=== PATIENT | female | born 1995 | race African-American/Black ===

== ENCOUNTER 2018-06-12 20:54 | Emergency (ER) | payer MEDICAID, OTHER ==
[2018-06-12] MEDS ORDERED: HYDROMORPHONE HCL INJ/PF 2 MG/ML AMPULE IV ONE ×2 (21:20→21:53)
--- NOTE | 2018-06-12 21:46 | ER Document Report ---
Addendum entered and electronically signed by MERRILL HERRERA PA-C 06/29/18 14:08: Procedures - Joint Reduction/Fracture Care Left Knee Consent obtained: Yes Conscious sedation: No Pre-procedure NV exam: Yes - Normal distal neurovascular exam Manipulation comment: Left patella reduction Post-procedure NV exam: Yes - Normal distal neurovascular exam Complications: No Original Note: ED General - General Chief Complaint: Knee Injury Stated Complaint: L KNEE INJURY Time Seen by Provider: 06/12/18 20:57 Notes: 22-year-old female presents to the emergency department for knee pain. She stat es she was a check he chooses and she was in the standing position then turned to walk somewhere and heard a pop in her knee gave out on her. She states she is in excruciating pain and there is an obvious deformity. She denies any trauma to the knee. She did fall and hit her head on 1 of the machines. No loss of consciousness. She denies any numbness or tingling to the left lower extremity. TRAVEL OUTSIDE OF THE [place] IN LAST 30 DAYS: No - HPI Patient complains to provider of: knee pain - Related Data Allergies/Adverse Reactions: No Known Allergies Allergy (Verified 08/13/14 18:22) Past Medical History - General Information source: Patient, Parent - Social History Smoking Status: Never Smoker Chew tobacco use (# tins/day): No Frequency of alcohol use: None Drug Abuse: None Family History: None Patient has suicidal ideation: No Patient has homicidal ideation: No Renal/ Medical History: Denies: Hx Peritoneal Dialysis - Immunizations Hx Diphtheria, Pertussis, Tetanus Vaccination: Yes Review of Systems - Review of Systems Constitutional: No symptoms reported EENT: No symptoms reported Cardiovascular: No symptoms reported Respiratory: No symptoms reported Gastrointestinal: No symptoms reported Genitourinary: No symptoms reported Female Genitourinary: No symptoms reported Musculoskeletal: See HPI Skin: No symptoms reported Hematologic/Lymphatic: No symptoms reported Neurological/Psychological: No symptoms reported Physical Exam - Vital signs Interpretation: Normal - Notes Notes: Reviewed vital signs and nursing note as charted by RN. CONSTITUTIONAL: Well-appearing, well-nourished, acting appropriately for age HEAD: Normocephalic, atraumatic, no swelling EYES: PERRL, Conjunctivae clear, no drainage, EOMI, no scleral icterus ENT: External ears without lesions, External auditory canal is patent, TMs without erythema, landmarks clear and well visualized, no rhinorrhea, Pharynx without erythema or lesions, no tonsillar hypertrophy, airway patent, mucous membranes pink and moist NECK: Supple, no cervical lymphadenopathy, no masses CARD: Regular rate and rhythm, no murmurs, no rubs, no gallops, capillary refill < 2 seconds, symmetric pulses RESP: The lungs are clear to auscultation bilaterally, no wheezing, no rales, no rhonchi. Respiratory rate and effort are normal, normal chest excursion. No respiratory distress, no retractions, no stridor, no nasal flaring, no accessory muscle use. ABD/GI: Normal bowel sounds, non-distended, soft, non-tender, no rebound, no guarding, no palpable organomegaly EXT: Obvious deformity to left knee. Patient is in excruciating pain unable to move the knee. Strong dorsalis pedis pulse, cap refill less than 2 seconds, extremity is warm. SKIN: Normal color for age and race, warm, dry, good turgor, no acute lesions noted NEURO: motor and sensory function intact Course - Re-evaluation Re-evalutation: 06/12/18 21:44 Patient is 22-year-old female who comes to the emergency department after a twisting motion that caused a fall and a pop in her knee. Patient with an obvious deformity to the left lower extremity. Two-view knee ordered at the bedside. Will perform LUPE of left upper and lower extremities. 1 mg Dilaudid ordered for pain control. Discussed with Dr. Gomez, will obtain L knee XR and obtain LUPE 06/12/18 22:16 LUPE LUE 123/58 , LLE 133/72. XR showed lateral patellar dislocation. 1 mg dilaudid IV given to prepare for relocation. Relocation performed after patient given the Dilaudid. Knee placed in immobilizer. Will give her crutches and orthopedic consultation. Patient tolerated procedure well. Postprocedure neurovascular exam normal. 06/12/18 22:17 06/12/18 22:45 06/12/18 22:46 Procedures - Immobilization Left Knee Pre-Proc Neuro Vasc Exam: Normal Immobilizer type: Knee immobilizer Performed by: Provider assisted Post-Proc Neuro Vasc Exam: Normal Alignment checked and good: Yes Discharge - Discharge Clinical Impression: Patellar dislocation Qualifiers: Encounter type: initial encounter Laterality: left Qualified Code(s): S83.005A - Unspecified dislocation of left patella, initial encounter Condition: Good Disposition: HOME, SELF-CARE Instructions: Use of Crutches ([facility]), Knee Immobilizing Splint ([facility]) Additional Instructions: You were seen in the emergency department this evening for a patellar dislocation. In order to prevent this in the future if it happens again try to immediately straightening her leg out and push the patella in place and it should pop in very easily. We have given you information for follow-up with an orthopedist and you should call them in the next 24-48 hours. We will send you home with some pain medications that you can take any should not take them while driving or working. If you notice any numbness or to lean in your leg you can slightly loosen the knee immobilizer if your leg turns blue, you have excruciating pain, pass out please immediately return to the emergency department. Referrals: AUBREY RODRIGUES, [ACTIVE STAFF] - Follow up as needed
--- NOTE | 2018-06-12 21:57 | RADIOLOGY REPORT (SQ) ---
2 VIEWS OF THE LEFT KNEE HISTORY: Knee pain. Evaluate for dislocation. COMPARISON: None. FINDINGS: The bone mineralization is normal. No acute fracture is seen. There is mild lateral subluxation of the patella on the crosstable frontal view. No knee joint effusion is seen. IMPRESSION: Query lateral subluxation of the patella. No fracture or joint effusion is seen. If there is high concern, a CT scan may be helpful.
[2018-06-12] MEDS ORDERED: HYDROCODONE/ACETAMINOPHEN 5-325 MG (6 TAB/ER DISP) PO PRN (22:44)
[2018-06-12 23:11] VITALS: BP 108/74
== END 2018-06-12 23:33 | disposition home or self-care (01) ==
LOC: ER 20:54
PROC: 0QSFXZZ Reposition Left Patella, External Approach (ICD-10-PCS; principal; 2018-06-12)
DX: S83.005A Unspecified dislocation of left patella, initial encounter (principal); W19.XXXA Unspecified fall, initial encounter
CPT/HCPCS: 96376; 99283; 96374; 73560; 27560; L1830; J1170